=== PATIENT | male | born 1955 | race Two or more races ===

== ENCOUNTER 2018-08-25 03:54 | Emergency (ER) | payer SELFPAY ==
[~2018-08-25] VITALS: Ht 175.3 cm; Wt 72.6 kg
--- NOTE | 2018-08-25 04:08 | NUR ---
at bedside for MSE
[2018-08-25] MEDS ORDERED: SULFAMETH/TRIMETH 800/160 MG TABLET ONE (04:15)
[2018-08-25] MEDS ORDERED: INDOMETHACIN 25 MG CAPSULE ONE (04:15)
[2018-08-25] MEDS: INDOMETHACIN 25 MG CAPSULE PO ONE (04:19)
[2018-08-25] MEDS: SULFAMETH/TRIMETH 800/160 MG TABLET PO ONE (04:19)
--- NOTE | 2018-08-25 04:21 | NUR ---
Patient discharged to home in stable conditon. Written and verbal after care instructions given. Patient verbalizes understanding of instructions. Pt. d/c w/ prescriptions per MD order, d/c papers signeed, all belongings w/ pt. ID band removed, ambulated off unit w/ steady gait, instructed not to drive while taking norcotic medication, NAD
== END 2018-08-25 04:24 | disposition home or self-care (01) ==
LOC: ER 03:56
DX: M10.9 Gout, unspecified (principal); Z95.0 Presence of cardiac pacemaker
CPT/HCPCS: A4663